=== PATIENT | female | born 1995 | race Caucasian/White ===

== ENCOUNTER 2016-10-03 21:03 | Emergency (ER) | payer OTHER ==
[~2016-10-03] VITALS: Ht 154.9 cm; Wt 45.2 kg
[~2016-10-03 21:03] MED LIST: ACET50TA PO; IBUP80TA PO; IRON65TA PO; MOTR200T44 PO; PRENTAB74 PO; TYLE325T5 PO; VITAPRTA PO
[2016-10-03 22:37] VITALS: BP 109/67
== END 2016-10-03 22:59 | disposition home or self-care (01) ==
LOC: M ED 21:03
DX: F43.0 Acute stress reaction (principal); F17.210 Nicotine dependence, cigarettes, uncomplicated

== ENCOUNTER 2016-10-22 04:16 | Emergency (ER) | payer OTHER ==
[~2016-10-22] VITALS: Ht 154.9 cm; Wt 47.7 kg
[2016-10-22 04:20] VITALS: BP 112/71
== END 2016-10-22 06:17 | disposition left against medical advice (07) ==
LOC: M ED 04:16
DX: S69.91XA Unspecified injury of right wrist, hand and finger(s), initial encounter (principal); Z53.21 Procedure and treatment not carried out due to patient leaving prior to being seen by health care provider

== ENCOUNTER → 2018-06-28 | Outpatient (REF) | payer OTHER ==
[~2018-06-28] MED LIST changes: +CHERSYP3 PO; +TESS100C PO
[2018-06-28 14:49] LABS: APPEARANCE, URINE HAZY (CLEAR); BACTERIA, URINE AUTO NEGATIVE (NEGATIVE); BILIRUBIN, URINE AUTO NEGATIVE (NEGATIVE); BLOOD, URINE BLOOD 1+ (NEGATIVE); COLOR, URINE YELLOW (YELLOW); GLUCOSE, URINE (UA) AUTO NEGATIVE (NEGATIVE); KETONE, URINE AUTO NEGATIVE (NEGATIVE); LEUKOCYTE ESTERASE, URINE AUTO 1+ (NEGATIVE); MUCUS, URINE SMALL (NEGATIVE); NITRITE, URINE AUTO NEGATIVE (NEGATIVE); PROTEIN, URINE AUTO 1+ mg/dL (NEGATIVE); RBC, URINE AUTO 2 /HPF (0-3); SPECIFIC GRAVITY URINE AUTO 1.019 (1.002-1.035); SQUAMOUS EPITHELIAL CELL UR AU 15 /HPF (0-6); UROBILINOGEN, URINE AUTO 0.2 mg/dL (0.0-2.0); WBC, URINE AUTO 27 /HPF (0-3)
== END ==
LOC: M LAB REF 14:25
PROVIDERS: ATTEND Nurse Practitioner Family
DX: R50.9 Fever, unspecified (principal); N39.0 Urinary tract infection, site not specified

== ENCOUNTER 2018-08-24 23:58 | Emergency (ER) | payer OTHER ==
[~2018-08-24] VITALS: Ht 154.9 cm; Wt 50.0 kg
[~2018-08-24 23:58] MED LIST changes: -ACET50TA PO; +MAPA500T17 PO
[2018-08-25] MEDS ORDERED: KETOROLAC 60 MG/2 ML VIAL (J1885) IM ONE (00:15)
--- NOTE | 2018-08-25 02:09 | REPVR ---
EXAM: US Pelvis Complete, Transabdominal EXAM DATE/TIME: 08/25/2018 1:29 AM CLINICAL HISTORY: 22 years old, female; Pelvic pain; Additional info: Iud in cervix TECHNIQUE: Imaging protocol: Real-time transabdominal pelvic ultrasound with image documentation. Complete exam. COMPARISON: US OBS FOLL UP OR REPEAT EACH GES 08/23/2014 2:42 PM FINDINGS: Uterus/cervix: The uterus measures 8.8 cm in its cephalocaudad dimension and 5.1 x 6.9 cm in its AP and lateral dimensions transabdominal. The uterus measures 8.8 cm in its cephalocaudad dimension and 4.9 x 6.6 cm in its AP and lateral dimensions transvaginal and appears retroflexed. The endometrium measures 3 mm. IUD in lower uterine segment and cervix. Right adnexa: The right ovary measures 3.6 x 3.1 x 2.4 cm and demonstrates blood flow and small follicles. Left adnexa: The left ovary measures 2.7 x 4.0 x 2.5 cm and demonstrates blood flow and small follicles. Free fluid: None. Bladder: Normal. IMPRESSION: 1. Low position of an IUD in the lower uterine segment and cervix. 2. Otherwise negative pelvic sonogram. Electronically signed by: Delgado Weber On 08/25/2018 02:08:42 AM
[2018-08-25] MEDS ORDERED: IBUP-1022 PO (02:16)
[2018-08-25 02:25] VITALS: BP 119/73
--- NOTE | 2018-08-26 14:20 | ED PDOC ---
Post-Departure Follow-Up dr ho faxed formal report of pelvis us for follow up Neptali Sousa MD August 26, 2018 14:20
== END 2018-08-25 02:26 | disposition home or self-care (01) ==
LOC: M ED 23:58
DX: R10.2 Pelvic and perineal pain (principal); T83.89XA Other specified complication of genitourinary prosthetic devices, implants and grafts, initial encounter; X58.XXXA Exposure to other specified factors, initial encounter; Y92.89 Other specified places as the place of occurrence of the external cause; Z88.0 Allergy status to penicillin; F17.210 Nicotine dependence, cigarettes, uncomplicated
CPT/HCPCS: 76830; 76856; 93976; 96372; 99284; J1885

== ENCOUNTER 2018-12-01 22:20 | Emergency (ER) | payer OTHER, SELFPAY ==
[~2018-12-01] VITALS: Ht 154.9 cm; Wt 52.3 kg
[2018-12-01 22:20] VITALS: BP 126/79
[~2018-12-01 22:20] MED LIST changes: +IBUP-1022 PO
[2018-12-02] MEDS ORDERED: LIDOCAINE 2% MDV 20 ML VIAL SC ONE (01:30)
[2018-12-02] MEDS ORDERED: DOXY100C37 PO (01:50)
[2018-12-02] MEDS ORDERED: DOXYCYCLINE HYCLATE 100 MG TAB PO ONE (02:00)
[2018-12-02] MEDS ORDERED: IBUPROFEN 600 MG TAB PO ONE (02:00)
== END 2018-12-02 02:02 | disposition home or self-care (01) ==
LOC: M ED 22:20
DX: L02.412 Cutaneous abscess of left axilla (principal); F31.9 Bipolar disorder, unspecified; Z72.0 Tobacco use; Z88.0 Allergy status to penicillin

== ENCOUNTER → 2019-01-12 | Outpatient (CLI) | payer OTHER, SELFPAY ==
[~2019-01-12] MED LIST changes: +DOXY100C37 PO; +FLON1SPR NARES
[2019-01-12 14:35] LABS: BASO % 0.1 % (0.0-1.0); EOS # 0.1 10^3/uL (0.0-0.5); EOS % 0.7 % (0.0-3.0); HEMATOCRIT 39.5 % (36.0-47.0); HEMOGLOBIN 13.6 g/dl (12.0-15.5); LYMPH % 24.6 % (24.0-44.0); MEAN CORPUSCULAR HEMOGLOBIN 31.9 pg (27.0-33.0); MEAN CORPUSCULAR HGB CONC 34.4 g/dl (32.0-36.5); MEAN CORPUSCULAR VOLUME 92.7 fl (80.0-96.0); MONO # 0.4 10^3/uL (0.0-0.8); MONO % 4.9 % (0.0-5.0); NEUTROPHILS # 5.8 10^3/uL (1.5-8.5); NEUTROPHILS % 69.5 % (36.0-66.0); PLATELET COUNT, AUTOMATED 159 10^3/uL (150-450); RED BLOOD COUNT 4.26 10^6/uL (4.00-5.40); WHITE BLOOD COUNT 8.3 10^3/uL (4.0-10.0)
[2019-01-12 16:00] LABS: CHLAMYDIA DNA AMPLIFICATION NEGATIVE (NEGATIVE); GC DNA AMPLIFICATION NEGATIVE (NEGATIVE)
[2019-01-12 21:32] LABS: RUBELLA IgG QUALITATIVE IMMUNE (IMMUNE)
[2019-01-14 11:27] LABS: HEPATITIS C VIRUS ABY INDEX 0.1 INDEX (<0.8)
[2019-01-14 12:58] LABS: HIV 1&2 SCREEN CENTAUR NEGATIVE (NEGATIVE)
== END ==
LOC: M LAB 13:44
PROVIDERS: ATTEND Advanced Practice Midwife
DX: Z34.82 Encounter for supervision of other normal pregnancy, second trimester (principal)

== ENCOUNTER 2019-01-15 12:10 | Emergency (ER) | payer OTHER, SELFPAY ==
[~2019-01-15] VITALS: Ht 154.9 cm; Wt 52.2 kg
[~2019-01-15 12:10] MED LIST changes: -FLON1SPR NARES
[2019-01-15 14:21] LABS: INFLUENZA A AMPLIFICATION NEGATIVE (NEGATIVE); INFLUENZA B AMPLIFICATION NEGATIVE (NEGATIVE)
[2019-01-15] MEDS ORDERED: FLON1SPR NARES (14:21)
[2019-01-15 14:26] VITALS: BP 119/67
== END 2019-01-15 14:58 | disposition home or self-care (01) ==
LOC: M ED 12:10
DX: J06.9 Acute upper respiratory infection, unspecified (principal); F17.200 Nicotine dependence, unspecified, uncomplicated; F31.9 Bipolar disorder, unspecified; Z88.0 Allergy status to penicillin; Z33.1 Pregnant state, incidental

== ENCOUNTER → 2019-03-13 | Outpatient (CLI) | payer OTHER, SELFPAY ==
[~2019-03-13] MED LIST changes: +FLON1SPR NARES
--- NOTE | 2019-03-13 12:02 | REP ---
Clinical: Anatomical evaluation. Comparison: None . Findings: Examination demonstrates a single live intrauterine in cephalic presentation. motion is identified by technologist. Placenta is noted posteriorly and grade 0 with evidence for complete previa. No evidence for abruption. Amniotic fluid volume is normal. Cervix measures 3.9 centimeters in length and appears closed. No evidence for nuchal cord. Gestational age by LMP 18 weeks 3 days with MAURY 08/11/2019 . Gestational age by current measurements 18 weeks 2 days with MAURY 08/12/2019 . FHR equals 149 beats per minute. BPD 4.1 cm 18 weeks 3 days HC 15.3 cm 18 weeks 2 days AC 12.6 cm 18 weeks 1 day FL 2.7 cm 18 weeks 1 day HL 2.6 cm 18 weeks 1 day HC/AC ratio 1.21 Estimated weight 227 grams ( 38th percentile). Anatomical assessment demonstrates normal structures including cranium, choroid plexus, cavum, cerebellum/posterior fossa, facial features, lungs, four-chamber heart/ventricular outflow tracts, diaphragm, stomach, cord insertion/three-vessel cord, kidneys/bladder, and extremities. Impression: 1. Single live intrauterine in cephalic presentation demonstrating appropriate interval growth. 2. Posterior grade zero placenta with complete previa. 3. Limited evaluation the spine. Remainder of the anatomical assessment is complete and normal. Electronically Signed by Shady Diaz MD 03/13/2019 11:53 A
== END ==
LOC: M RAD 11:08
PROVIDERS: ATTEND Specialist
DX: Z34.80 Encounter for supervision of other normal pregnancy, unspecified trimester (principal); Z3A.18 18 weeks gestation of pregnancy

== ENCOUNTER 2019-05-03 13:30 | Emergency (ER) | payer OTHER, SELFPAY ==
[~2019-05-03] VITALS: Ht 154.9 cm; Wt 57.0 kg
[2019-05-03 13:30] VITALS: BP 117/71
[2019-05-03 14:27] LABS: INFLUENZA A AMPLIFICATION NEGATIVE (NEGATIVE); INFLUENZA B AMPLIFICATION NEGATIVE (NEGATIVE)
== END 2019-05-03 14:37 | disposition home or self-care (01) ==
LOC: M ED 13:30
DX: O99.512 Diseases of the respiratory system complicating pregnancy, second trimester (principal); J06.9 Acute upper respiratory infection, unspecified; B34.9 Viral infection, unspecified; R05 Cough; Z88.0 Allergy status to penicillin; Z3A.26 26 weeks gestation of pregnancy

== ENCOUNTER 2019-05-13 19:43 | Emergency (ER) | payer OTHER, SELFPAY ==
[~2019-05-13] VITALS: Ht 154.9 cm; Wt 54.5 kg
[2019-05-13 22:13] LABS: INFLUENZA A AMPLIFICATION POSITIVE (NEGATIVE); INFLUENZA B AMPLIFICATION NEGATIVE (NEGATIVE)
[2019-05-13] MEDS ORDERED: ALBUTEROL SULFATE 2.5 MG/0.5 ML INH NEB SOLN NEB ONE (22:30)
[2019-05-13 23:45] VITALS: BP 112/58
[2019-05-13] MEDS ORDERED: ALBUTEROL 90 MCG/ACT 8GM HFA INHALER INH ONE (23:45)
== END 2019-05-13 23:46 | disposition home or self-care (01) ==
LOC: M ED 19:43
DX: O99.513 Diseases of the respiratory system complicating pregnancy, third trimester (principal); J09.X2 Influenza due to identified novel influenza A virus with other respiratory manifestations; Z3A.27 27 weeks gestation of pregnancy; O99.343 Other mental disorders complicating pregnancy, third trimester; F31.9 Bipolar disorder, unspecified; Z88.0 Allergy status to penicillin; Z87.891 Personal history of nicotine dependence

== ENCOUNTER 2019-05-18 10:41 | Outpatient (CLI) | payer SELFPAY ==
[2019-05-18] VITALS (7 sets, daily range): BP systolic 94–114; BP diastolic 53–72
[~2019-05-18] VITALS: Ht 154.9 cm; Wt 55.5 kg
[2019-05-18] MEDS: PRENATAL VITAMINS CHEWABLE TABLET PO SCH (09:00)
--- NOTE | 2019-05-18 12:32 | REP ---
Clinical: History of placenta previa Comparison: 03/13/2019 . Findings: Examination demonstrates a single live intrauterine in breech presentation. motion is identified by technologist. Placenta is noted posterior, grade 1 and with evidence for complete previa. A small amount of funneling along with a 2.8 x 1.0 x 2.0 cm hyperechoic focus which may represent clot is suggested at the internal os. The cervix measures 3.8 cm in length. Amniotic fluid volume is lower limits of normal. No evidence for nuchal cord. Gestational age by LMP 27 weeks 6 days with MAURY 08/11/2019 . FHR equals 165 beats per minute. Amniotic fluid index: 9.8 cm (9.4 - 22.8) Impression: 1. Complete placenta previa with suggestion for clot and small amount of funneling at the internal os. The cervix measures at 3.8 cm. Electronically Signed by Shady Diaz MD 05/18/2019 12:23 P
[2019-05-18 15:18] LABS: HEMATOCRIT 30.4 % (36.0-47.0); MEAN CORPUSCULAR HGB CONC 32.9 g/dl (32.0-36.5); MEAN CORPUSCULAR VOLUME 94.1 fl (80.0-96.0); PLATELET COUNT, AUTOMATED 130 10^3/uL (150-450); RED BLOOD COUNT 3.23 10^6/uL (4.00-5.40)
[2019-05-18] MEDS ORDERED: DOCUSATE SODIUM 100 MG CAP PO PRN (15:30)
[2019-05-18] MEDS: BETAMETHASONE SOLUSPAN 6MG/ML INJ 5ML (J0702) IM SCH (15:38)
[2019-05-18] MEDS: FERROUS GLUCONATE 324 MG TAB PO SCH ×2 (17:29→21:00)
--- NOTE | 2019-05-18 17:45 | IPNPDOC ---
Text Note Date of Service The patient was seen on 05/18/19. NOTE Subjective: Patient is a 23-year-old female who is a at 27.6 weeks g estation with an MAURY of 08/11/19. Her has been complicated by being a smoker, history of delivery and a complete previa. She presents to L&D with complaints of a large amount of bright red bleeding that started abruptly this morning at 10:00. She denies having any intercourse or any heavy lifting. Reports her bleeding started when she was laying on the couch. She reports some cramping but denies contractions and leaking of fluid. Reports active movement. Allergies: PCN Current medications: none Past pregnancies: -May 2013: of living female at 40.4 weeks gestation weighting 6 lbs 14 oz. with no complications. -November 2014: of living male at 36.5 weeks gestation weighting 6 lbs 2 oz., complicated by PPROM labs: O+ blood type, H/H: 13.6/39.5 with platelets 159 Medical history: no current problems Surgical history: none Social history: patient is a smoker. Smoking about 1/2 pack per day. Denies use of alcohol or drugs during . Family history: seizure Objective: FHR 140, moderate variability, positive accelerations, no dece lerations. Contractions: occasional. A+O x3. Dental decay noted. Respiratory rate is regular without use of accessory muscles. Abdomen: gravid, soft and non- tender to touch. SSE: 2 large clots noted in the vaginal canal. Clots removed and appear to be about 150 cc for blood loss. Cervix visualized and appears to be closed. Scant amount of bright red trickle noted coming from the cervical os with Valsalva's. Assessment: IUP at 27.6 weeks gestation, complete previa with active bleeding. Plan: Dr. Garcia consulted for plan of care. Stat ultrasound-transvaginal ordered with CBC. Betamethasone ordered for now and again in 24 hours. Iron, PNV and colace ordered due to CBC results. Saline lock placed. Will continue to monitor patient with continuous external monitoring. Extensive education done on a complete previa and plan of care. Encouraged no intercourse, pelvic rest and no heavy lifting. Will be discharged to home tomorrow if bleeding stops and after her second dose of Betamethasone. VS,Fishbone, I+O VS, Fishbone, I+O Laboratory Tests 05/18/19 14:59 Vital Signs Date Time Temp Pulse Resp B/P (MAP) Pulse Ox O2 Delivery O2 Flow Rate FiO2 05/18/19 16:33 78 18 101/57 (72) 05/18/19 14:13 98.6 EXAMINATION REQUESTED: Obs. Limited, TALISHA US REASON FOR PATIENT VISIT: BLEEDING REASON FOR EXAM/COMMENT: complete previa with bleeding Clinical: History of placenta previa Comparison: 03/13/2019 . Findings: Examination demonstrates a single live intrauterine in breech presentation. motion is identified by technologist. Placenta is noted posterior, grade 1 and with evidence for complete previa. A small amount of funneling along with a 2.8 x 1.0 x 2.0 cm hyperechoic focus which may represent clot is suggested at the internal os. The cervix measures 3.8 cm in length. Amniotic fluid volume is lower limits of normal. No evidence for nuchal cord. Gestational age by LMP 27 weeks 6 days with MAURY 08/11/2019 . FHR equals 165 beats per minute. Amniotic fluid index: 9.8 cm (9.4 - 22.8) Impression: 1. Complete placenta previa with suggestion for clot and small amount of funneling at the internal os. The cervix measures at 3.8 cm. Electronically Signed by Shady Diaz MD 05/18/2019 12:23 P KATE FREDERICK CNM May 18, 2019 17:45
[2019-05-19 07:29] VITALS: BP 101/55
[2019-05-19] MEDS: PRENATAL VITAMINS CHEWABLE TABLET PO SCH (09:00)
[2019-05-19] MEDS: FERROUS GLUCONATE 324 MG TAB PO SCH ×2 (09:00→16:00)
[2019-05-19 11:05] VITALS: BP 99/57
[2019-05-19 15:16] VITALS: BP 95/62
[2019-05-19] MEDS: BETAMETHASONE SOLUSPAN 6MG/ML INJ 5ML (J0702) IM SCH (15:49)
== END 2019-05-19 18:05 | disposition home or self-care (01) ==
LOC: M LDO 10:41
PROVIDERS: ATTEND Advanced Practice Midwife
DX: O44.03 Complete placenta previa NOS or without hemorrhage, third trimester (principal); O99.333 Smoking (tobacco) complicating pregnancy, third trimester; Z3A.27 27 weeks gestation of pregnancy; Z88.0 Allergy status to penicillin
CPT/HCPCS: 36415; 59025; 76815; 76817; 85027; 93976; 96372; G0378; G0463; J0702

== ENCOUNTER → 2019-06-15 | Outpatient (CLI) | payer OTHER, SELFPAY ==
[2019-06-15 14:40] LABS: HEMATOCRIT 29.6 % (36.0-47.0); HEMOGLOBIN 9.9 g/dl (12.0-15.5); MEAN CORPUSCULAR HEMOGLOBIN 31.6 pg (27.0-33.0); MEAN CORPUSCULAR HGB CONC 33.4 g/dl (32.0-36.5); MEAN CORPUSCULAR VOLUME 94.6 fl (80.0-96.0); PLATELET COUNT, AUTOMATED 129 10^3/uL (150-450); RED BLOOD COUNT 3.13 10^6/uL (4.00-5.40); WHITE BLOOD COUNT 10.2 10^3/uL (4.0-10.0)
== END ==
LOC: M LAB 12:24
PROVIDERS: ATTEND Advanced Practice Midwife
DX: Z34.92 Encounter for supervision of normal pregnancy, unspecified, second trimester (principal)

== ENCOUNTER 2019-07-06 22:25 | Outpatient (CLI) | payer OTHER, SELFPAY ==
[~2019-07-06] VITALS: Ht 154.9 cm; Wt 60.0 kg
[2019-07-06 22:34] VITALS: BP 110/65
--- NOTE | 2019-07-06 22:54 | IPNPDOC ---
Text Note Date of Service The patient was seen on 07/06/19. NOTE Subjective: Patient is a 23-year-old female who is a at 34.6 weeks gestation with an MAURY of 08/11/2019. She initiated care in her first trimester. Her has been complicated by a complete previa, smoking, and a history of labor. She presents with vaginal bleeding. She reports she was folding laundry and felt some bleeding and went to the bathroom and noted a gush of blood into the toilet. She reports it was very watery and not clotting like it was with her last episode. She reports she is unsure if her water broke. She had an episode fo bleeding at 27 weeks and was given betamethasone injections then. She reports active movement. She denies cramping or contractions. Objective: VS and ultrasound see below. FHR 130, moderate variability, positive accelerations, no decelerations. Contractions: none. A+Ox3. Respiratory rate is regular with no use of accessory muscles. Abdomen: gravid and soft to palpation. SSE: about 50 cc of blood removed from the vaginal canal with the speculum. No active bleeding coming from the cervical os with Valsalva. Assessment: IUP at 34.6 weeks gestation, complete previa with active bleeding, beta complete. Plan: Dr. Garcia notified and plan of care collaborated. We will continue to monitor. Continue with NPO diet with ice chips. Portable ultrasound ordered. Patient encouraged to let us know if she has nay more bleeding or is feeling contractions. IV to be continued with LR at 125 ml/hr. CBC and Type and screen ordered. VS,Fishbone, I+O VS, Fishbone, I+O Vital Signs Date Time Temp Pulse Resp B/P (MAP) Pulse Ox O2 Delivery O2 Flow Rate FiO2 07/06/19 22:34 98.2 96 16 110/65 (80) Item Value Date Time White Blood Count 8.0 10^3/uL 05/18/19 1459 Red Blood Count 3.23 10^6/uL L 05/18/19 1459 Hemoglobin 10.0 g/dl L 05/18/19 1459 Hematocrit 30.4 % L 05/18/19 1459 Mean Corpuscular Volume 94.1 fl 05/18/19 1459 Mean Corpuscular Hemoglobin 31.0 pg 2/10/20 1459 Mean Corpuscular Hemoglobin Concent 32.9 g/dl 05/18/19 1459 Red Cell Distribution Width 12.8 % 05/18/19 1459 Platelet Count 130 10^3/uL L 05/18/19 1459 Nucleated Red Blood Cells % (auto) 0.0 % 05/18/19 1459 EXAMINATION REQUESTED: Obs. Limited, TALISHA US REASON FOR PATIENT VISIT: 35 WEEK PREVIA BLEEDING REASON FOR EXAMINATION: complete previa with bleeding and questionable rupture PROCEDURE INFORMATION: Exam: US , Limited Exam date and time: 07/07/2019 12:35 AM Age: 23 years old Clinical indication: Lmp or gestational age (in weeks): 35w; Antepartum complications; Bleeding; ; Additional info: Complete previa with bleeding and questionable rupture TECHNIQUE: Imaging protocol: Real-time ultrasound of the maternal uterus with image documentation. Exam focused on the clinical indication. COMPARISON: Obs. Limited, TALISHA US 05/18/2019 11:50 AM FINDINGS: GESTATION: Gestation: Single intrauterine fetus. Heart rate: heartbeat of 153 bpm. Presentation: Cephalic presentation. Placenta: Posterior and left lateral placenta with complete previa. Amniotic fluid: TALISHA of 7.5 cm. MATERNAL: Cervix: Closed cervix measuring 3.0 cm and 2.6 cm with Valsalva. Other findings: S/D ratio is 2.4. IMPRESSION: 1. Decreased TALISHA since 05/18/2019 now measuring 7.5 cm which is slightly abnormal. 2. Posterior left lateral placenta with complete previa. 3. Single live intrauterine fetus in cephalic presentation. Electronically signed by: Delgado Weber On 07/07/2019 00:56:47 AM KATE FREDERICK CNM Jul 06, 2019 22:54
[2019-07-06] MEDS: LR 1,000 ML IV SCH (23:15)
[2019-07-07] VITALS (8 sets, daily range): BP systolic 91–103; BP diastolic 50–59
--- NOTE | 2019-07-07 00:57 | REPVR ---
PROCEDURE INFORMATION: Exam: US , Limited Exam date and time: 07/07/2019 12:35 AM Age: 23 years old Clinical indication: Lmp or gestational age (in weeks): 35w; Antepartum complications; Bleeding; ; Additional info: Complete previa with bleeding and questionable rupture TECHNIQUE: Imaging protocol: Real-time ultrasound of the maternal uterus with image documentation. Exam focused on the clinical indication. COMPARISON: Obs. Limited, TALISHA US 05/18/2019 11:50 AM FINDINGS: GESTATION: Gestation: Single intrauterine fetus. Heart rate: heartbeat of 153 bpm. Presentation: Cephalic presentation. Placenta: Posterior and left lateral placenta with complete previa. Amniotic fluid: TALISHA of 7.5 cm. MATERNAL: Cervix: Closed cervix measuring 3.0 cm and 2.6 cm with Valsalva. Other findings: S/D ratio is 2.4. IMPRESSION: 1. Decreased TALISHA since 05/18/2019 now measuring 7.5 cm which is slightly abnormal. 2. Posterior left lateral placenta with complete previa. 3. Single live intrauterine fetus in cephalic presentation. Electronically signed by: Delgado Weber On 07/07/2019 00:56:47 AM
[2019-07-07 01:00] LABS: BASO % 0.2 % (0.0-1.0); EOS % 0.4 % (0.0-3.0); HEMOGLOBIN 8.6 g/dl (12.0-15.5); LYMPH # 2.5 10^3/uL (1.5-5.0); LYMPH % 24.1 % (24.0-44.0); MEAN CORPUSCULAR HEMOGLOBIN 31.4 pg (27.0-33.0); MEAN CORPUSCULAR HGB CONC 34.4 g/dl (32.0-36.5); MEAN CORPUSCULAR VOLUME 91.2 fl (80.0-96.0); MONO # 0.8 10^3/uL (0.0-0.8); MONO % 7.4 % (0.0-5.0); NEUTROPHILS % 67.3 % (36.0-66.0); PLATELET COUNT, AUTOMATED 136 10^3/uL (150-450); RED BLOOD COUNT 2.74 10^6/uL (4.00-5.40); WHITE BLOOD COUNT 10.4 10^3/uL (4.0-10.0)
[2019-07-07] MEDS ORDERED: FLINCHW2 PO (08:00)
[2019-07-07] MEDS: LR 1,000 ML IV SCH (10:32)
== END 2019-07-07 14:22 | disposition home or self-care (01) ==
LOC: M LDO 22:25
PROVIDERS: ATTEND Advanced Practice Midwife
DX: O46.93 Antepartum hemorrhage, unspecified, third trimester (principal); O44.10 Complete placenta previa with hemorrhage, unspecified trimester; Z3A.34 34 weeks gestation of pregnancy
CPT/HCPCS: 36415; 59025; 76815; 76817; 76820; 85025; 86850; 86900; 86901; 96360; 96361; G0378; G0463

== ENCOUNTER 2019-07-09 00:06 | Inpatient (IN) | payer OTHER, SELFPAY ==
[2019-07-09] VITALS (24 sets, daily range): BP systolic 93–113; BP diastolic 53–69
[~2019-07-09] VITALS: Ht 154.9 cm; Wt 60.7 kg
[~2019-07-09 00:06] MED LIST changes: +FLINCHW2 PO
[2019-07-09] MEDS ORDERED: ceFAZolin SOD 2 GM in IV 1 EA IV ONE (01:00)
[2019-07-09] MEDS ORDERED: AZITHROMYCIN INJ 500 MG, VIAL MATE ADAPTER 1 EACH in D5W 250 ML IV ONE (01:00)
[2019-07-09] MEDS ORDERED: BICITRA 30ML SOLN UDC PO ONE (01:00)
[2019-07-09] MEDS: LR 1,000 ML IV SCH ×4 (01:21→17:20)
[2019-07-09 01:28] LABS: HEMOGLOBIN 8.2 g/dl (12.0-15.5); MEAN CORPUSCULAR HEMOGLOBIN 31.1 pg (27.0-33.0); MEAN CORPUSCULAR HGB CONC 34.2 g/dl (32.0-36.5); MEAN CORPUSCULAR VOLUME 90.9 fl (80.0-96.0); PLATELET COUNT, AUTOMATED 145 10^3/uL (150-450); RED BLOOD COUNT 2.64 10^6/uL (4.00-5.40); WHITE BLOOD COUNT 9.6 10^3/uL (4.0-10.0)
[2019-07-09] MEDS ORDERED: LACTATED RINGER'S 1000 ML IV ONE (01:30)
[2019-07-09 03:28] LABS: AMPHETAMINES URINE REFLEX NEGATIVE (NEGATIVE); BARBITURATES URINE REFLEX NEGATIVE (NEGATIVE); BENZODIAZEPINES URINE REFLEX NEGATIVE (NEGATIVE); CANNABINOIDS URINE REFLEX NEGATIVE (NEGATIVE); COCAINE METABOLITE URINE REFLE NEGATIVE (NEGATIVE); METHADONE URINE REFLEX NEGATIVE (NEGATIVE); OPIATES URINE REFLEX NEGATIVE (NEGATIVE); PHENCYCLIDINE URINE REFLEX NEGATIVE (NEGATIVE)
--- NOTE | 2019-07-09 06:15 | HPE ---
DATE OF ADMISSION: 07/09/2019 HISTORY OF PRESENT ILLNESS: Candice is a 23-year-old, 3, para 1-1-0-2, at 35-2/7 weeks gestation, expected date of confinement (EDC) of 08/11/2019 based on first trimester ultrasound. She presents to labor and delivery today with an episode of spontaneous vaginal bleeding at approximately 2330. She reports a small clot and some continued scant bleeding. She denies contractions or leakage of fluid. The fetus has been active. Her care was initiated at [facility] in the first trimester. course complicated by placenta previa. This is her second episode of bleeding in 48 hours. She is a smoker and she has a history of delivery due to premature rupture of membranes (PPROM). OBSTETRICAL HISTORY: May 2013, 40 weeks and 4 days, 6 pounds and 14 ounces female, spontaneous vaginal delivery. November 2014, 36-5/7 weeks, 6 pounds 2 ounces male, spontaneous vaginal delivery, premature rupture of membranes. OBSTETRICAL LABS: O positive, antibody screen negative, Rubella immune, VDRL: non-reactive, Urine culture: no growth, HBsAG negative, HIV negative, hep C antibody Negative, Declined genetic screening labs, GDS-121, GBS unknown. PAST MEDICAL HISTORY: Noncontributory. SURGERIES: None. FAMILY HISTORY: Seizure disorder. SOCIAL HISTORY: The patient is single. She does have a partner that is involved. She is a smoker and she has continued to smoke throughout her . She denies alcohol and drug use. She denies any history of sexually transmitted infections. She denies history of abuse - physical, sexual and emotional. ALLERGIES: PENICILLIN, she reports a rash. Denies any anaphylactic reaction. CURRENT MEDICATIONS: vitamin and iron. OBJECTIVE: Temperature 97.7, pulse 103, respirations 18, blood pressure (BP) is 111/64. She is alert and oriented x3. She does not appear in any distress. heart rate is 145, moderate variability, positive accelerations, negative decelerations. There is no pattern of regular contractions. Sterile speculum exam noted a small amount of dark red clot in the vaginal vault. There appears to be minimal active bleeding at this time. Her abdomen is gravid, cephalic presentation. She did undergo an ultrasound on 07/07/2019 that demonstrated oligohydramnios, fluid was 7 centimeters. She also had a CBC which showed anemia which she has had since the beginning of the third trimester. Her hemoglobin on 07/07/2019 was 8.6, hematocrit 25.0 and platelets 136. ASSESSMENT: Intrauterine at 35-2/7 weeks gestation. heart rate category one. Placenta previa, bleeding and severe anemia. PLAN: Per consult with Dr. Manuel Freitas, admit the patient to labor and delivery. IV fluids. Routine labs. Bedrest with bathroom privileges. Nothing by mouth diet. Two units of packed cells. Plan for section in the morning at approximately 0730. The risks, benefits and alternatives have been reviewed with the patient. All of her questions have been answered. She has been consented for a primary section as well as blood transfusion. SAÚL
[2019-07-09] MEDS ORDERED: PHENYLephrine HCL 500 MCG/5 ML (100MCG/ML) SYRINGE (J2370) As Ordered ONE (07:39)
[2019-07-09] MEDS ORDERED: ePHEDrine SULFATE 25 MG/5 ML(5MG/ML) SYRINGE As Ordered ONE (07:39)
[2019-07-09] MEDS ORDERED: ONDANSETRON 4MG/2ML VIAL (J2405) As Ordered ONE (07:39)
[2019-07-09] MEDS ORDERED: dexameTHASONE 4 MG/ML 1ML VIAL (J1100 PER 1MG) As Ordered ONE (07:39)
[2019-07-09] MEDS ORDERED: MORPHINE PRES-FREE INJ 10 MG/10 ML VIAL (J2274) As Ordered ONE (07:40)
[2019-07-09] MEDS ORDERED: OXYTOCIN 30 UNITS IN 0.9% NaCl 500ML IV BAG (J2590) As Ordered ONE ×2 (07:40→10:48)
[2019-07-09] MEDS ORDERED: METOCLOPRAMIDE INJ 10MG/2ML VIAL (J2765) IV PRN ×2 (09:53→11:15)
[2019-07-09] MEDS ORDERED: ONDANSETRON 4MG/2ML VIAL (J2405) IV PRN ×2 (09:53→11:15)
[2019-07-09] MEDS ORDERED: NALOXONE INJ 0.4 MG/1 ML VIAL (J2310) IV PRN ×2 (09:53)
[2019-07-09] MEDS ORDERED: diphenhydrAMINE 50MG/ML VIAL (J1200) IV PRN (09:53)
[2019-07-09] MEDS ORDERED: NALBUPHINE HCL 10 MG/ML AMP (J2300) IV PRN (09:53)
[2019-07-09] MEDS ORDERED: GLYCOPYRROLATE INJ 0.2 MG/ML 2 ML VIAL As Ordered ONE (10:18)
[2019-07-09] MEDS ORDERED: OXYTOCIN INJ 10 UNITS/ML VIAL (J2590) As Ordered ONE (10:28)
[2019-07-09] MEDS ORDERED: OXYTOCIN DRIP 30 UNITS in IV 1 EA IV SCH (10:52)
[2019-07-09] MEDS ORDERED: RHOGAM 300 MCG (1500 IU) INJ (J2790) IM SCH (11:00)
[2019-07-09] MEDS ORDERED: MEASLES,MUMPS,RUBELLA VACCINE INJ (MMR-II) (90707) SC SCH (11:00)
[2019-07-09] MEDS ORDERED: PERCOCET 5MG/325MG TAB PO PRN ×3 (11:00→11:15)
[2019-07-09] MEDS ORDERED: ONDANSETRON 4 MG TAB (S0181) PO PRN (11:00)
--- NOTE | 2019-07-09 11:05 | RO ---
DATE OF PROCEDURE: 07/09/2019 PREPROCEDURE DIAGNOSIS: 35 and 3/7 weeks gestation, complete placenta previa, early labor, bleeding. POSTPROCEDURE DIAGNOSIS: 35 and 3/7 weeks gestation, complete placenta previa, early labor, bleeding. PROCEDURE: Primary low transverse section. SURGEON: Manuel Freitas MD CONSUMER EXPERIENCE CONSULTANT: Faustino Su DO ANESTHESIA: Spinal. ESTIMATED BLOOD LOSS: 600 mL. URINE OUTPUT: 50 mL. IV FLUIDS: 1900 mL lactated Ringers. FINDINGS: Female , Apgars 8 and 9. Weight unknown at the time of dictation. Complete placenta previa. Normal uterus, fallopian tubes and ovaries. DESCRIPTION OF PROCEDURE: The patient was taken to the operating room where spinal anesthesia was induced. She was prepped and draped in sterile fashion in the supine position. A Felix catheter was placed. A Pfannenstiel skin incision was made with the scalpel and carried through to the fascia. The fascia was nicked and extended and the fascia dissected off the rectus muscles. The peritoneal cavity was entered. A Mobius retractor was placed. A bladder flap was created. A curvilinear incision was made in the lower uterine segment until clear fluid was noted. This was extended manually. The infant was delivered from the vertex position without difficulty. The cord was doubly clamped and cut. The infant was handed off to the awaiting elastic tape inserter. The placenta was noted to be a complete placenta previa. The placenta was expressed. The uterus was closed with #0 Vicryl in a running locked fashion. A second imbricating layer of #0 Vicryl was placed. The Mobius retractor was removed. The peritoneum was closed with #2-0 Vicryl in running fashion. The fascia closed with #0 Vicryl in running fashion. The deep layer was irrigated. The skin was closed with #4-0 Monocryl subcuticular sutures. Sponge, instrument and needle counts were correct.
[2019-07-09] MEDS ORDERED: KETOROLAC 30 MG/ML VIAL (J1885) As Ordered ONE (11:06)
[2019-07-09] MEDS ORDERED: KETOROLAC 30 MG/ML VIAL (J1885) IV PRN (11:15)
[2019-07-09] MEDS ORDERED: LR 1,000 ML IV SCH (11:15)
[2019-07-09] MEDS ORDERED: fentaNYL 100 MCG/2 ML INJECTION (J3010) As Ordered ONE (11:31)
[2019-07-09] MEDS: fentaNYL 100 MCG/2 ML INJECTION (J3010) IV PRN ×3 (11:33→11:52)
[2019-07-09 15:22] LABS: HEMATOCRIT 28.4 % (36.0-47.0); HEMOGLOBIN 9.7 g/dl (12.0-15.5); MEAN CORPUSCULAR HGB CONC 34.2 g/dl (32.0-36.5); MEAN CORPUSCULAR VOLUME 90.7 fl (80.0-96.0); PLATELET COUNT, AUTOMATED 114 10^3/uL (150-450); RED BLOOD COUNT 3.13 10^6/uL (4.00-5.40); WHITE BLOOD COUNT 14.1 10^3/uL (4.0-10.0)
[2019-07-09] MEDS: KETOROLAC 30 MG/ML VIAL (J1885) IV SCH ×2 (16:42→23:02)
[2019-07-10 02:00] VITALS: BP 111/71
[2019-07-10] MEDS: LR 1,000 ML IV SCH (03:00)
[2019-07-10] MEDS: KETOROLAC 30 MG/ML VIAL (J1885) IV SCH (05:12)
[2019-07-10 06:16] VITALS: BP 98/57
[2019-07-10 06:49] LABS: HEMATOCRIT 24.6 % (36.0-47.0); HEMOGLOBIN 8.3 g/dl (12.0-15.5); MEAN CORPUSCULAR HEMOGLOBIN 30.5 pg (27.0-33.0); MEAN CORPUSCULAR HGB CONC 33.7 g/dl (32.0-36.5); MEAN CORPUSCULAR VOLUME 90.4 fl (80.0-96.0); PLATELET COUNT, AUTOMATED 128 10^3/uL (150-450); RED BLOOD COUNT 2.72 10^6/uL (4.00-5.40); WHITE BLOOD COUNT 12.9 10^3/uL (4.0-10.0)
--- NOTE | 2019-07-10 07:21 | IPNPDOC ---
Progress Note Date of Service: Jul 10, 2019 Day#: 1 Progress Note SUBJECT: Patient is a 23-year-old 3 now Para 1-2-0-3 status post PLTCS secondary to continuous bleeding from placenta previa at 35-3/7 weeks' at approximately 1016 hours on 07/09/2019 of a baby girl at 5 pounds 10 ounces (2548 grams), doing well day #1. She has been ambulating, voiding spontaneously without issue and tolerating regular diet.Reports her pain is well controlled. Patient is ambulating well. Voiding and stooling without difficulty. OBJECTIVE: VITAL SIGNS: Within normal limits, afebrile. Alert and oriented times three. Breath sounds clear to auscultation. Heart rate: Regular rate and rhythm, no murmurs, rubs or gallops. Abdomen: Fundus firm at U-2. Soft, NTTP. ASSESSMENT: Patient is a 23-year-old 3 now Para 1-2-0-3 status post C/S secondary to placenta previa after presenting with vaginal bleeding, delivered at 1016 hours and 35-3/7 weeks', doing well on day 1. Vitals within normal limits, afebrile, hemodynamically stable with no evidence of infection. PLAN: 1. Continue to monitor throughout the day, AM hgb stable at 8.3, no transfusion necessary, anticipate D/C tomorrow. 2. Tylenol and Motrin for pain. 3. Encourage ambulation. 4. Routine PP visit in 6 weeks in clinic. VS, I&O, 24H, Fishbone Vital Signs/I&O Vital Signs Date Time Temp Pulse Resp B/P (MAP) Pulse Ox O2 Delivery O2 Flow Rate FiO2 07/10/19 06:16 97.9 70 14 98/57 (71) 98 Room Air I&O- Last 24 Hours up to 6 AM 07/10/19 06:00 Intake Total 1926 ml Output Total 2150 ml Balance -224 ml Laboratory Data 24H LABS Laboratory Tests 2 07/09/19 15:02: Nucleated Red Blood Cells % (auto) 0.0 07/10/19 06:30: Nucleated Red Blood Cells % (auto) 0.0 CBC/BMP Laboratory Tests 07/09/19 15:02 07/10/19 06:30 GME ATTESTATION GME ATTESTATION My faculty preceptor for this patient encounter was physically present during the encounter and was fully available. All aspects of the patient interview, examination, medical decision making process, and medical care plan development were reviewed and approved by the faculty preceptor. The faculty preceptor is aware and concurs with the plan as stated in the body of this note and will attest to such by his/her cosignature. SAHIL LITTLEJOHN DO Jul 10, 2019 07:21
[2019-07-10] MEDS ORDERED: OXYC1TAB23 PO (08:04)
[2019-07-10] MEDS ORDERED: IBUP80TA PO (08:05)
[2019-07-10] MEDS: PRENATAL VITAMINS CHEWABLE TABLET PO SCH (08:10)
[2019-07-10 10:00] VITALS: BP 111/52
[2019-07-10] MEDS ORDERED: IBUPROFEN 800 MG TAB PO SCH (13:00)
[2019-07-10 15:25] VITALS: BP 124/64
[2019-07-10] MEDS ORDERED: HYDROcodone/APAP LIQUID 7.5-325MG 15ML UDC (LORTAB ELIXIR) PO PRN ×2 (16:15)
[2019-07-10] MEDS ORDERED: ACETAMINOPHEN 325 MG/10.15 ML UDC PO PRN ×2 (16:15→16:30)
[2019-07-10] MEDS: IBUPROFEN 100 MG/5 ML SUSP UDC DYE FREE PO SCH (17:14)
[2019-07-10 18:34] VITALS: BP 108/64
[2019-07-10 22:00] VITALS: BP 114/63
[2019-07-11] MEDS: IBUPROFEN 100 MG/5 ML SUSP UDC DYE FREE PO SCH ×3 (00:36→18:06)
[2019-07-11 06:00] VITALS: BP 113/66
--- NOTE | 2019-07-11 06:06 | IPNPDOC ---
Text Note Date of Service The patient was seen on 07/11/19. NOTE SUBJECT: Patient is a 23-year-old 3 now Para 1-2-0-3 POD#2 status post PLTCS secondary to continuous bleeding from placenta previa at 35-3/7 weeks' at approximately 1016 hours on 07/09/2019 of a baby girl at 5 pounds 10 ounces (2548 grams), doing well day #2. She has been ambulating, voiding spontaneously without issue and tolerating regular diet. Reports her pain is well controlled. Patient is ambulating well. Voiding without difficulty. OBJECTIVE: VITAL SIGNS: Within normal limits, afebrile. Alert and oriented times three. Breath sounds clear to auscultation. Heart rate: Regular rate and rhythm, no murmurs, rubs or gallops. Abdomen: Fundus firm at U-2. Soft, Nontender. ASSESSMENT: Patient is a 23-year-old 3 now Para 1-2-0-3 POD#2 status post C/S secondary to placenta previa after presenting with vaginal bleeding, delivered at 1016 hours and 35-3/7 weeks', doing well on day 2. Vitals within normal limits, afebrile, hemodynamically stable with no evidence of infection. PLAN: 1. Continue to monitor throughout the day, anticipate D/C tomorrow. 2. Tylenol and Motrin for pain. 3. Encourage ambulation. 4. Routine PP visit in 6 weeks in clinic. VS,Fishbone, I+O VS, Fishbone, I+O Laboratory Tests 07/10/19 06:30 Vital Signs Date Time Temp Pulse Resp B/P (MAP) Pulse Ox O2 Delivery O2 Flow Rate FiO2 07/11/19 06:00 97.9 77 16 113/66 (82) 07/10/19 15:25 97 07/10/19 06:16 Room Air GME ATTESTATION GME ATTESTATION My faculty preceptor for this patient encounter was physically present during the encounter and was fully available. All aspects of the patient interview, examination, medical decision making process, and medical care plan development were reviewed and approved by the faculty preceptor. The faculty preceptor is aware and concurs with the plan as stated in the body of this note and will attest to such by his/her cosignature. SABINO SILVEIRA D.O. Jul 11, 2019 06:06
[2019-07-11 07:30] VITALS: BP 113/66
[2019-07-11] MEDS: PRENATAL VITAMINS CHEWABLE TABLET PO SCH (11:13)
[2019-07-11 18:36] VITALS: BP 137/75
[2019-07-12] MEDS: IBUPROFEN 100 MG/5 ML SUSP UDC DYE FREE PO SCH ×2 (00:19→08:50)
[2019-07-12 05:49] VITALS: BP 118/63
[2019-07-12] MEDS: PRENATAL VITAMINS CHEWABLE TABLET PO SCH (08:49)
== END 2019-07-12 11:55 | disposition home or self-care (01) | DRG 540 ==
LOC: M LDO 00:06 → M LDI 00:49 → M OBS 12:45
PROVIDERS: ADMIT Advanced Practice Midwife; ATTEND Specialist
PROC: 10D00Z1 Extraction of Products of Conception, Low, Open Approach (ICD-10-PCS; principal; 2019-07-09 07:41)
DX: O44.13 Complete placenta previa with hemorrhage, third trimester (principal); Z3A.35 35 weeks gestation of pregnancy; O99.334 Smoking (tobacco) complicating childbirth; F17.210 Nicotine dependence, cigarettes, uncomplicated; O99.02 Anemia complicating childbirth; D64.9 Anemia, unspecified; O60.14X0 Preterm labor third trimester with preterm delivery third trimester, not applicable or unspecified; Z37.0 Single live birth

== ENCOUNTER 2020-04-16 01:31 | Emergency (ER) | payer MEDICAID, OTHER ==
[~2020-04-16] VITALS: Ht 154.9 cm; Wt 50.0 kg
[~2020-04-16 01:31] MED LIST changes: +OXYC1TAB23 PO
--- NOTE | 2020-04-16 03:57 | REPVR ---
PROCEDURE INFORMATION: Exam: US Pelvis Complete, Transabdominal and US Duplex Artery and Vein, Ovaries, Complete Exam date and time: 04/16/2020 3:08 AM Age: 24 years old Clinical indication: Pelvic pain; Additional info: Sudden pain R/O ovarian cyst rupture/torsion TECHNIQUE: Imaging protocol: Real-time transabdominal pelvic ultrasound with image documentation. Real-time duplex ultrasound scan of the arterial and venous flow of the ovaries with B-mode, color Doppler flow and spectral waveform analysis. Complete Pelvis, Complete Duplex. COMPARISON: US PELVIC NON-OB COMPLETE 08/25/2018 1:07 AM FINDINGS: Uterus/cervix: Uterus measures 9.4 x 4.8 x 6.2 cm. Endometrial stripe is 3 mm. Right adnexa: Right ovary measures 5 x 3 x 2.8 cm. Normal waveforms. There is suggestion of an involuting 1.8 x 2.2 x 1.3 cm right ovarian corpus luteal cyst. Left adnexa: Left ovary measures 3 x 2 x 2.2 cm. Normal waveforms. Free fluid: Small amount of fluid around right adnexa. Bladder: Normal. IMPRESSION: Suggestion of an involuting 1.8 x 2.2 x 1.3 cm right ovarian corpus luteal cyst. Small amount of fluid around right adnexa. No evidence of ovarian torsion bilaterally. Electronically signed by: Randy Regalado On 04/16/2020 03:57:34 AM
[2020-04-16] MEDS ORDERED: KETOROLAC 30 MG/ML 1ML VIAL IV ONE (04:15)
[2020-04-16] MEDS ORDERED: NAPR-837 PO (05:29)
[2020-04-16 05:50] VITALS: BP 115/65
== END 2020-04-16 06:09 | disposition home or self-care (01) ==
LOC: M ED 01:31
DX: N83.291 Other ovarian cyst, right side (principal); F17.200 Nicotine dependence, unspecified, uncomplicated; Z88.0 Allergy status to penicillin
CPT/HCPCS: 76856; 80047; 84702; 96374; 99284; J1885

== ENCOUNTER 2020-10-11 10:17 | Emergency (ER) | payer OTHER ==
[~2020-10-11] VITALS: Ht 154.9 cm; Wt 52.0 kg
[~2020-10-11 10:17] MED LIST changes: -DOXY100C37 PO; +DOXY1CAP62 PO; +NAPR-837 PO
[2020-10-11] MEDS ORDERED: NS 1,000 ML IV ONE (15:40)
[2020-10-11 16:17] LABS: BASO % 0.2 % (0.0-1.0); EOS # 0.1 10^3/uL (0.0-0.5); EOS % 0.6 % (0.0-3.0); HEMATOCRIT 44.1 % (36.0-47.0); HEMOGLOBIN 14.5 g/dl (12.0-15.5); LYMPH % 27.6 % (24.0-44.0); MEAN CORPUSCULAR HEMOGLOBIN 30.3 pg (27.0-33.0); MEAN CORPUSCULAR HGB CONC 32.9 g/dl (32.0-36.5); MEAN CORPUSCULAR VOLUME 92.3 fl (80.0-96.0); MONO # 0.6 10^3/uL (0.0-0.8); MONO % 5.3 % (2.0-8.0); NEUTROPHILS # 7.2 10^3/uL (1.5-8.5); NEUTROPHILS % 65.9 % (36.0-66.0); PLATELET COUNT, AUTOMATED 266 10^3/uL (150-450); RED BLOOD COUNT 4.78 10^6/uL (4.00-5.40); WHITE BLOOD COUNT 10.9 10^3/uL (4.0-10.0)
[2020-10-11 16:30] LABS: BLOOD UREA NITROGEN 11 MG/DL (7-18); CALCIUM LEVEL 9.6 MG/DL (8.5-10.1); CARBON DIOXIDE LEVEL 26 MEQ/L (21-32); CHLORIDE LEVEL 102 MEQ/L (98-107); CPK CREATINE PHOSPHOKINASE 52 U/L (26-192); CREATININE FOR GFR 0.69 MG/DL (0.55-1.30); GLOMERULAR FILTRATION RATE > 60.0 (>60); GLUCOSE, FASTING 84 MG/DL (70-100); POTASSIUM SERUM 4.1 MEQ/L (3.5-5.1); SODIUM LEVEL 135 MEQ/L (136-145)
[2020-10-11 16:50] VITALS: BP 124/74
== END 2020-10-11 16:56 | disposition home or self-care (01) ==
LOC: M ED 10:17
DX: L55.9 Sunburn, unspecified (principal); F17.200 Nicotine dependence, unspecified, uncomplicated; Z88.0 Allergy status to penicillin

== ENCOUNTER 2021-01-14 18:48 | Emergency (ER) | payer OTHER ==
[~2021-01-14] VITALS: Ht 154.9 cm; Wt 51.4 kg
[2021-01-14 18:49] VITALS: BP 151/80
== END 2021-01-14 23:01 | disposition left against medical advice (07) ==
LOC: M ED 18:48
DX: Z53.29 Procedure and treatment not carried out because of patient's decision for other reasons (principal)

== ENCOUNTER → 2021-01-15 | Outpatient (REF) | payer OTHER | LOC: M LAB REF 18:44 | PROVIDERS: ATTEND Physician Assistant | DX: R05.9 Cough, unspecified (principal) ==

== ENCOUNTER → 2021-02-16 | Outpatient (REF) ==
[~2021-02-16] MED LIST changes: +DOXY-443 PO; -DOXY1CAP62 PO
[2021-02-16 13:11] LABS: RSV AMPLIFICATION NEGATIVE (NEGATIVE)
== END ==
LOC: M EMP 11:08
PROVIDERS: ATTEND Family Medicine
DX: Z11.52 Encounter for screening for COVID-19 (principal); Z20.822 Contact with and (suspected) exposure to COVID-19

== ENCOUNTER → 2021-03-06 | Outpatient (CLI) | payer OTHER ==
[~2021-03-06] MED LIST changes: +MULTTAB20 PO; +ZOFR4TAB16 PO
[2021-03-06 16:50] LABS: BASO % 0.2 % (0.0-1.0); EOS % 0.4 % (0.0-3.0); HEMOGLOBIN 12.9 g/dl (12.0-15.5); LYMPH # 2.4 10^3/uL (1.5-5.0); LYMPH % 23.8 % (24.0-44.0); MEAN CORPUSCULAR HEMOGLOBIN 30.5 pg (27.0-33.0); MEAN CORPUSCULAR HGB CONC 33.1 g/dl (32.0-36.5); MEAN CORPUSCULAR VOLUME 92.2 fl (80.0-96.0); MONO # 0.5 10^3/uL (0.0-0.8); MONO % 5.2 % (2.0-8.0); PLATELET COUNT, AUTOMATED 175 10^3/uL (150-450); RED BLOOD COUNT 4.23 10^6/uL (4.00-5.40)
[2021-03-06 19:10] LABS: GC DNA AMPLIFICATION NEGATIVE (NEGATIVE)
[2021-03-06 19:34] LABS: HEPATITIS C VIRUS ABY INDEX 0.1 INDEX (<0.8); HIV 1&2 SCREEN CENTAUR NEGATIVE (NEGATIVE)
== END ==
LOC: M PLALAB 13:40
PROVIDERS: ATTEND Advanced Practice Midwife
DX: Z36.9 Encounter for antenatal screening, unspecified (principal); Z3A.00 Weeks of gestation of pregnancy not specified

== ENCOUNTER 2021-04-02 17:27 | Emergency (ER) | payer OTHER ==
[~2021-04-02] VITALS: Ht 154.9 cm; Wt 52.3 kg
[~2021-04-02 17:27] MED LIST changes: -MULTTAB20 PO; -ZOFR4TAB16 PO
[2021-04-02] MEDS ORDERED: NS 1,000 ML IV ONE (19:25)
[2021-04-02] MEDS ORDERED: ONDANSETRON 4MG/2ML VIAL IV ONE (19:25)
[2021-04-02 20:06] LABS: BASO % 0.1 % (0.0-1.0); EOS # 0.1 10^3/uL (0.0-0.5); EOS % 1.4 % (0.0-3.0); HEMATOCRIT 34.5 % (36.0-47.0); HEMOGLOBIN 11.6 g/dl (12.0-15.5); LYMPH # 2.3 10^3/uL (1.5-5.0); LYMPH % 31.4 % (24.0-44.0); MEAN CORPUSCULAR HEMOGLOBIN 30.8 pg (27.0-33.0); MEAN CORPUSCULAR HGB CONC 33.6 g/dl (32.0-36.5); MEAN CORPUSCULAR VOLUME 91.5 fl (80.0-96.0); MONO # 0.5 10^3/uL (0.0-0.8); MONO % 7.1 % (2.0-8.0); NEUTROPHILS # 4.4 10^3/uL (1.5-8.5); NEUTROPHILS % 59.7 % (36.0-66.0); PLATELET COUNT, AUTOMATED 169 10^3/uL (150-450); RED BLOOD COUNT 3.77 10^6/uL (4.00-5.40); WHITE BLOOD COUNT 7.3 10^3/uL (4.0-10.0)
[2021-04-02 20:17] LABS: RSV AMPLIFICATION NEGATIVE (NEGATIVE)
[2021-04-02 20:29] LABS: ALT/SGPT 13 U/L (12-78); BILIRUBIN,DIRECT < 0.1 MG/DL (0.0-0.2); BILIRUBIN,TOTAL 0.2 MG/DL (0.2-1.0); BLOOD UREA NITROGEN 11 MG/DL (7-18); CALCIUM LEVEL 8.7 MG/DL (8.5-10.1); CARBON DIOXIDE LEVEL 24 MEQ/L (21-32); CHLORIDE LEVEL 107 MEQ/L (98-107); CREATININE FOR GFR 0.48 MG/DL (0.55-1.30); GLOMERULAR FILTRATION RATE > 60.0 (>60); GLUCOSE, FASTING 80 MG/DL (70-100); LIPASE 55 U/L (73-393); POTASSIUM SERUM 3.7 MEQ/L (3.5-5.1); SODIUM LEVEL 139 MEQ/L (136-145); TOTAL PROTEIN 6.7 GM/DL (6.4-8.2)
[2021-04-02 22:03] VITALS: BP 106/57
== END 2021-04-02 22:19 | disposition home or self-care (01) ==
LOC: M ED 17:27
DX: O9A.212 Injury, poisoning and certain other consequences of external causes complicating pregnancy, second trimester (principal); R11.2 Nausea with vomiting, unspecified; R52 Pain, unspecified; T50.Z95A Adverse effect of other vaccines and biological substances, initial encounter; O99.342 Other mental disorders complicating pregnancy, second trimester; F31.9 Bipolar disorder, unspecified; Z3A.14 14 weeks gestation of pregnancy; Z88.0 Allergy status to penicillin; O99.332 Smoking (tobacco) complicating pregnancy, second trimester; F17.210 Nicotine dependence, cigarettes, uncomplicated
CPT/HCPCS: 80048; 80076; 81001; 83690; 85025; 87631; 96361; 96374; 99284; J2405

== ENCOUNTER 2021-04-12 07:40 | Emergency (ER) | payer OTHER ==
[~2021-04-12] VITALS: Ht 154.9 cm; Wt 52.3 kg
[2021-04-12] MEDS ORDERED: ZOFR4TAB16 PO (08:24)
[2021-04-12] MEDS ORDERED: MULTTAB20 PO (08:25)
[2021-04-12 09:14] LABS: BASO % 0.1 % (0.0-1.0); EOS % 0.4 % (0.0-3.0); HEMATOCRIT 32.5 % (36.0-47.0); HEMOGLOBIN 10.9 g/dl (12.0-15.5); LYMPH % 20.9 % (24.0-44.0); MEAN CORPUSCULAR HEMOGLOBIN 30.8 pg (27.0-33.0); MEAN CORPUSCULAR HGB CONC 33.5 g/dl (32.0-36.5); MEAN CORPUSCULAR VOLUME 91.8 fl (80.0-96.0); MONO # 0.4 10^3/uL (0.0-0.8); MONO % 4.6 % (2.0-8.0); NEUTROPHILS # 7.1 10^3/uL (1.5-8.5); NEUTROPHILS % 73.7 % (36.0-66.0); PLATELET COUNT, AUTOMATED 171 10^3/uL (150-450); RED BLOOD COUNT 3.54 10^6/uL (4.00-5.40); WHITE BLOOD COUNT 9.6 10^3/uL (4.0-10.0)
[2021-04-12 09:59] LABS: BLOOD UREA NITROGEN 9 MG/DL (7-18); CALCIUM LEVEL 8.6 MG/DL (8.5-10.1); CARBON DIOXIDE LEVEL 24 MEQ/L (21-32); CHLORIDE LEVEL 108 MEQ/L (98-107); CREATININE FOR GFR 0.43 MG/DL (0.55-1.30); GLOMERULAR FILTRATION RATE > 60.0 (>60); GLUCOSE, FASTING 82 MG/DL (70-100); POTASSIUM SERUM 4.1 MEQ/L (3.5-5.1); SODIUM LEVEL 139 MEQ/L (136-145)
[2021-04-12] MEDS ORDERED: ACETAMINOPHEN TAB 650MG DOSE (2X325MG) PO ONE (13:00)
[2021-04-12 13:11] LABS: HCG, SERUM QUANTITATIVE 21999 MIU/ML
[2021-04-12 14:35] VITALS: BP 118/74
[2021-04-12 14:36] LABS: GC DNA AMPLIFICATION NEGATIVE (NEGATIVE)
== END 2021-04-12 14:36 | disposition home or self-care (01) ==
LOC: M ED 07:40
DX: R10.30 Lower abdominal pain, unspecified (principal); Z3A.15 15 weeks gestation of pregnancy; Z88.0 Allergy status to penicillin; O99.332 Smoking (tobacco) complicating pregnancy, second trimester; F17.210 Nicotine dependence, cigarettes, uncomplicated
CPT/HCPCS: 36415; 76811; 80048; 81001; 84702; 85025; 86850; 86900; 86901; 87086; 87210; 87661; 93976; 99283; U0003

== ENCOUNTER → 2021-05-29 | Outpatient (CLI) | payer OTHER ==
[~2021-05-29] MED LIST changes: +MULTTAB20 PO; +ZOFR4TAB16 PO
== END ==
LOC: M RAD 15:43
PROVIDERS: ATTEND Advanced Practice Midwife
DX: Z34.92 Encounter for supervision of normal pregnancy, unspecified, second trimester (principal)

== ENCOUNTER 2021-06-27 13:05 | Outpatient (CLI) | payer OTHER ==
[~2021-06-27] VITALS: Ht 154.9 cm; Wt 56.1 kg
[2021-06-27 13:22] VITALS: BP 120/67
[2021-06-27] MEDS ORDERED: HOME MED LIST COMPLETE! XX SCH (13:30)
== END 2021-06-27 13:53 | disposition home or self-care (01) ==
LOC: M LDO 13:05
PROVIDERS: ATTEND Obstetrics & Gynecology
DX: O26.892 Other specified pregnancy related conditions, second trimester (principal); N89.8 Other specified noninflammatory disorders of vagina; R10.2 Pelvic and perineal pain; Z3A.25 25 weeks gestation of pregnancy

== ENCOUNTER → 2021-09-15 | Outpatient (REF) | payer OTHER | LOC: M SFHCWAGY 13:21 | PROVIDERS: ATTEND Specialist | DX: Z36.89 Encounter for other specified antenatal screening (principal) ==

== ENCOUNTER → 2021-12-19 | Outpatient (CLI) | payer OTHER | LOC: M LABSMTC 11:01 | PROVIDERS: ATTEND Anesthesiology | DX: Z01.812 Encounter for preprocedural laboratory examination (principal); Z11.52 Encounter for screening for COVID-19 ==

== ENCOUNTER 2021-12-21 08:18 | Day surgery (SDC) | payer OTHER ==
[~2021-12-21] VITALS: Ht 154.9 cm; Wt 52.2 kg
[~2021-12-21 08:18] MED LIST changes: +BUPIVACAINE HCL 0.25% 30ML VIAL As Ordered ONE
[2021-12-21] MEDS ORDERED: BUPIVACAINE HCL 0.25% 10ML VIAL As Ordered ONE (09:00)
[2021-12-21] MEDS ORDERED: LR 1,000 ML IV SCH ×3 (09:00→12:50)
[2021-12-21] MEDS ORDERED: MIDAZOLAM INJ 2MG/2ML VIAL (J2250 PER 1MG) As Ordered ONE (09:16)
[2021-12-21] MEDS ORDERED: fentaNYL 100 MCG/2 ML INJECTION As Ordered ONE (09:17)
[2021-12-21] MEDS ORDERED: ROCURONIUM BROMIDE 50 MG/5 ML VIAL As Ordered ONE (09:18)
[2021-12-21] MEDS ORDERED: LIDOCAINE 2% 100MG/5ML SDV (FOR ANES.) As Ordered ONE (09:19)
[2021-12-21] MEDS ORDERED: dexameTHASONE 4 MG/ML 1ML VIAL (J1100 PER 1MG) As Ordered ONE (09:23)
[2021-12-21 09:54] LABS: HEMATOCRIT 36.5 % (36.0-47.0); HEMOGLOBIN 11.8 g/dl (12.0-15.5); MEAN CORPUSCULAR HEMOGLOBIN 27.8 pg (27.0-33.0); MEAN CORPUSCULAR HGB CONC 32.3 g/dl (32.0-36.5); MEAN CORPUSCULAR VOLUME 85.9 fl (80.0-96.0); PLATELET COUNT, AUTOMATED 203 10^3/uL (150-450); RED BLOOD COUNT 4.25 10^6/uL (4.00-5.40); WHITE BLOOD COUNT 8.3 10^3/uL (4.0-10.0)
[2021-12-21] MEDS ORDERED: ONDANSETRON 4MG 2ML VIAL As Ordered ONE (11:12)
[2021-12-21] MEDS ORDERED: ACETAMINOPHEN 1000MG 100ML IV BTL (OFIRMEV) (J0131 PER 10MG) As Ordered ONE (11:14)
[2021-12-21] MEDS ORDERED: KETOROLAC 60MG 2ML VIAL As Ordered ONE (11:17)
[2021-12-21] MEDS ORDERED: SUGAMMADEX SODIUM 500 MG/5 ML VIAL (BRIDION) As Ordered ONE (11:27)
[2021-12-21] MEDS ORDERED: OXYC1TAB23 PO (11:42)
[2021-12-21] MEDS ORDERED: IBUP-1022 PO (11:43)
[2021-12-21] MEDS ORDERED: ONDANSETRON 4MG 2ML VIAL IV PRN (11:45)
[2021-12-21] MEDS ORDERED: fentaNYL 100 MCG/2 ML INJECTION IV PRN (11:45)
[2021-12-21] MEDS ORDERED: oxyCODONE 5MG TAB PO PRN (11:45)
[2021-12-21] MEDS ORDERED: MEPERIDINE INJ 25 MG/ML VIAL (J2175) As Ordered ONE (11:49)
[2021-12-21] MEDS: MEPERIDINE INJ 25 MG/ML VIAL (J2175) IV PRN ×2 (11:53→12:06)
[2021-12-21] MEDS ORDERED: propofoL 200 MG/20 ML VIAL As Ordered ONE (12:19)
[2021-12-21] MEDS ORDERED: PERCOCET 5MG/325MG TAB PO PRN (12:55)
[2021-12-21 14:25] VITALS: BP 131/80
== END 2021-12-21 14:30 | disposition home or self-care (01) ==
LOC: M SDC 08:18
PROVIDERS: ATTEND Specialist
DX: Z30.2 Encounter for sterilization (principal); F90.9 Attention-deficit hyperactivity disorder, unspecified type; F17.200 Nicotine dependence, unspecified, uncomplicated; Z88.0 Allergy status to penicillin
CPT/HCPCS: 36415; 58661; 81025; 85027; 88302; J0131; J1100; J1885; J2175; J2250; J2405; J3010

== ENCOUNTER → 2022-05-01 | Outpatient (REF) ==
[~2022-05-01] MED LIST changes: -BUPIVACAINE HCL 0.25% 30ML VIAL As Ordered ONE
[2022-05-01 09:07] LABS: RSV AMPLIFICATION NEGATIVE (NEGATIVE)
== END ==
LOC: M EMP 08:01
PROVIDERS: ATTEND Family Medicine
DX: Z11.59 Encounter for screening for other viral diseases (principal)

== ENCOUNTER 2022-09-17 22:12 | Emergency (ER) | payer OTHER ==
[~2022-09-17] VITALS: Ht 160 cm; Wt 50.0 kg
[2022-09-17 22:12] VITALS: BP 115/55; TEMP 97.8; O2SAT 96
[2022-09-18 04:25] LABS: HEMATOCRIT 35.9 % (36.0-47.0); HEMOGLOBIN 11.9 g/dl (12.0-15.5); MEAN CORPUSCULAR HGB CONC 33.1 g/dl (32.0-36.5); MEAN CORPUSCULAR VOLUME 87.6 fl (80.0-96.0); PLATELET COUNT, AUTOMATED 205 10^3/uL (150-450)
[2022-09-18 04:26] LABS: BLOOD UREA NITROGEN 16 MG/DL (9-23); CALCIUM LEVEL 9.2 MG/DL (8.5-10.1); CARBON DIOXIDE LEVEL 25 MMOL/L (20-31); CHLORIDE LEVEL 107 MMOL/L (98-107); CK-MB VALUE MASS < 1.0 NG/ML (<3.6); CPK CREATINE PHOSPHOKINASE 84 U/L (34-145); CREATININE FOR GFR 0.77 MG/DL (0.55-1.30); GLOMERULAR FILTRATION RATE > 60.0 (>60); GLUCOSE, FASTING 90 MG/DL (60-100); MB/CK RELATIVE INDEX 1.19 (< OR =4); POTASSIUM SERUM 3.6 MMOL/L (3.5-5.1); SODIUM LEVEL 139 MMOL/L (136-145)
[2022-09-18 04:28] LABS: BASOPHILS 1 % (0-1); LYMPHOCYTES 31 % (16-44); MONOCYTES 4 % (0-5); NEUTROPHILS 64 % (28-66); PLATELET ESTIMATE NORMAL (NORMAL)
== END 2022-09-18 01:20 | disposition left against medical advice (07) ==
LOC: M ED 22:12
DX: F41.0 Panic disorder [episodic paroxysmal anxiety] (principal); Z53.21 Procedure and treatment not carried out due to patient leaving prior to being seen by health care provider

== ENCOUNTER → 2022-10-22 | Outpatient (REF) | LOC: M EMP 08:57 | PROVIDERS: ATTEND Family Medicine | DX: Z11.52 Encounter for screening for COVID-19 (principal) ==

== ENCOUNTER 2023-02-15 15:53 | Emergency (ER) | payer OTHER ==
[~2023-02-15] VITALS: Ht 154.9 cm; Wt 53.1 kg
[2023-02-15] MEDS ORDERED: DOCU100C16 (16:18)
[2023-02-15] MEDS ORDERED: MIRA3350 (16:18)
[2023-02-15] MEDS ORDERED: NS 1,000 ML IV ONE (21:15)
[2023-02-15] MEDS ORDERED: ONDANSETRON 4MG 2ML VIAL IV ONE (21:15)
[2023-02-15 22:04] LABS: BASO % 0.3 % (0.0-1.0); EOS # 0.1 10^3/uL (0.0-0.5); EOS % 0.8 % (0.0-3.0); HEMATOCRIT 35.2 % (36.0-47.0); HEMOGLOBIN 11.7 g/dl (12.0-15.5); LYMPH % 38.8 % (24.0-44.0); MEAN CORPUSCULAR HEMOGLOBIN 29.7 pg (27.0-33.0); MEAN CORPUSCULAR HGB CONC 33.2 g/dl (32.0-36.5); MEAN CORPUSCULAR VOLUME 89.3 fl (80.0-96.0); MONO # 0.4 10^3/uL (0.0-0.8); MONO % 5.4 % (2.0-8.0); NEUTROPHILS # 4.2 10^3/uL (1.5-8.5); NEUTROPHILS % 54.6 % (36.0-66.0); PLATELET COUNT, AUTOMATED 222 10^3/uL (150-450); RED BLOOD COUNT 3.94 10^6/uL (4.00-5.40); WHITE BLOOD COUNT 7.7 10^3/uL (4.0-10.0)
[2023-02-15] MEDS ORDERED: ACET325C5 PO (22:17)
[2023-02-15] MEDS ORDERED: ISOVUE-370 76% 100ML VIAL As Ordered ONE (22:22)
[2023-02-15] MEDS ORDERED: ACETAMINOPHEN *IV* 1,000 MG in IV 1 EA IV ONE (22:25)
[2023-02-15 22:28] LABS: LIPASE 23 U/L (12-53)
[2023-02-15 22:31] LABS: ALBUMIN 3.7 G/DL (3.2-5.2); ALKALINE PHOSPHATASE 41 U/L (46-116); ALT/SGPT 9 U/L (7.0-40); AST/SGOT < 8 U/L (<34); BILIRUBIN,DIRECT < 0.1 MG/DL (<0.4); BILIRUBIN,TOTAL 0.3 MG/DL (0.3-1.2); HCG, SERUM QUALITATIVE NEGATIVE (NEGATIVE); TOTAL PROTEIN 6.8 G/DL (5.7-8.2)
[2023-02-16] MEDS ORDERED: IBUP-1022 PO (00:39)
[2023-02-16 00:52] VITALS: BP 103/58; TEMP 97.9; O2SAT 99
== END 2023-02-16 00:54 | disposition home or self-care (01) ==
LOC: M ED 15:53
DX: R10.9 Unspecified abdominal pain (principal); Z88.0 Allergy status to penicillin
CPT/HCPCS: 74177; 76856; 80047; 80076; 81001; 83690; 84702; 84703; 85025; 93976; 96365; 96375; 99284; J0131; J2405; Q9967

== ENCOUNTER 2023-11-30 16:16 | Emergency (ER) | payer OTHER ==
[~2023-11-30] VITALS: Ht 154.9 cm; Wt 52.3 kg
[2023-11-30 16:16] VITALS: BP 139/83; TEMP 97.2; O2SAT 96
[~2023-11-30 16:16] MED LIST changes: +ACET325C5 PO; +DOCU100C16; +DOXY-323 PO; -DOXY-443 PO; +MIRA3350
== END 2023-11-30 17:15 | disposition home or self-care (01) ==
LOC: M ED 16:16
DX: S93.401A Sprain of unspecified ligament of right ankle, initial encounter (principal); X50.0XXA Overexertion from strenuous movement or load, initial encounter; Y92.9 Unspecified place or not applicable; Y93.89 Activity, other specified; Y99.0 Civilian activity done for income or pay; Z88.0 Allergy status to penicillin

== ENCOUNTER → 2023-12-10 | Outpatient (CLI) | payer OTHER | LOC: M SOG 08:17 | PROVIDERS: ATTEND Physician Assistant | DX: M25.571 Pain in right ankle and joints of right foot (principal) ==

== ENCOUNTER → 2023-12-18 | Outpatient (CLI) | payer OTHER | LOC: M RAD 07:43 | PROVIDERS: ATTEND Physician Assistant | DX: S93.401A Sprain of unspecified ligament of right ankle, initial encounter (principal); X58.XXXA Exposure to other specified factors, initial encounter; Y92.9 Unspecified place or not applicable; Y93.9 Activity, unspecified; Y99.9 Unspecified external cause status ==

== ENCOUNTER 2024-01-16 15:45 | Outpatient (RCR) | payer OTHER ==
[~2024-01-16 15:45] MED LIST changes: -DOXY-323 PO; +DOXY-441 PO
== END 2024-02-06 ==
LOC: M PT 15:45
PROVIDERS: ATTEND Physician Assistant
DX: S93.401A Sprain of unspecified ligament of right ankle, initial encounter (principal)

== ENCOUNTER 2024-06-02 14:21 | Outpatient (RCR) | payer OTHER | END 2024-06-05 | LOC: M PT 14:21 | PROVIDERS: ATTEND Family Medicine | DX: S93.491D Sprain of other ligament of right ankle, subsequent encounter (principal) ==

== ENCOUNTER → 2024-07-06 | Outpatient (RCR) | payer OTHER | LOC: M PT 06-09 14:20 | PROVIDERS: ATTEND Family Medicine | DX: S93.491D Sprain of other ligament of right ankle, subsequent encounter (principal) ==

== ENCOUNTER → 2024-07-14 | Outpatient (REF) | LOC: M EMP 08:46 | PROVIDERS: ATTEND Family Medicine | DX: Z01.89 Encounter for other specified special examinations (principal) ==

== ENCOUNTER 2024-07-21 07:45 | Outpatient (RCR) | payer OTHER | END 2024-08-05 | LOC: M PT 07:45 | PROVIDERS: ATTEND Family Medicine | DX: S93.491D Sprain of other ligament of right ankle, subsequent encounter (principal) ==

== ENCOUNTER → 2024-07-27 | Outpatient (REF) | payer OTHER ==
[2024-07-27 18:28] LABS: IRON (FE) 91 UG/DL (50-170); PERCENT SATURATION 23.8 % (13.2-45.0); TOTAL IRON BINDING CAPACITY 383 UG/DL (250-425)
[2024-07-27 18:29] LABS: ALBUMIN 4.1 G/DL (3.2-5.2); ALKALINE PHOSPHATASE 41 U/L (35-104); ALT/SGPT 15 U/L (7.0-40); AST/SGOT 10 U/L (<34); BILIRUBIN,TOTAL 0.4 MG/DL (0.3-1.2); BLOOD UREA NITROGEN 16 MG/DL (9-23); CALCIUM LEVEL 9.3 MG/DL (8.5-10.1); CARBON DIOXIDE LEVEL 28 MMOL/L (20-31); CHLORIDE LEVEL 105 MMOL/L (98-107); CHOLESTEROL LEVEL 154 MG/DL (<200); CHOLESTEROL RISK RATIO 2.59 (<5); CREATININE FOR GFR 0.68 MG/DL (0.55-1.30); GLOMERULAR FILTRATION RATE > 90.0 (>60); GLUCOSE, FASTING 74 MG/DL (60-100); HDL CHOLESTEROL 59.3 MG/DL (>40); LDL CHOLESTEROL 76.1 MG/DL (<100); NON-HDL-C 94.7 MG/DL; POTASSIUM SERUM 4.2 MMOL/L (3.5-5.1); SODIUM LEVEL 138 MMOL/L (136-145); TOTAL PROTEIN 6.9 G/DL (5.7-8.2); TRIGLYCERIDES LEVEL 93 MG/DL (<150)
[2024-07-27 18:32] LABS: BASO % 0.4 % (0.0-1.0); EOS # 0.1 10^3/uL (0.0-0.5); EOS % 0.7 % (0.0-3.0); FERRITIN 6.9 NG/ML (7.3-270.7); HEMATOCRIT 37.8 % (36.0-47.0); HEMOGLOBIN 12.4 g/dl (12.0-15.5); LYMPH # 2.7 10^3/uL (1.5-5.0); LYMPH % 31.7 % (24.0-44.0); MEAN CORPUSCULAR HEMOGLOBIN 29.2 pg (27.0-33.0); MEAN CORPUSCULAR HGB CONC 32.8 g/dl (32.0-36.5); MEAN CORPUSCULAR VOLUME 89.2 fl (80.0-96.0); MONO # 0.5 10^3/uL (0.0-0.8); MONO % 5.4 % (2.0-8.0); NEUTROPHILS # 5.3 10^3/uL (1.5-8.5); NEUTROPHILS % 61.6 % (36.0-66.0); PLATELET COUNT, AUTOMATED 236 10^3/uL (150-450); RED BLOOD COUNT 4.24 10^6/uL (4.00-5.40); TOTAL 25(OH) VITAMIN D 25.7 NG/ML (20.0-100.0); WHITE BLOOD COUNT 8.6 10^3/uL (4.0-10.0)
[2024-07-27 18:33] LABS: THYROID STIMULATING HORMONE 0.326 uIU/ML (0.55-4.78)
[2024-07-27 19:02] LABS: HIV 1&2 SCREEN NEGATIVE (NEGATIVE)
[2024-07-27 19:10] LABS: HEPATITIS C VIRUS ABY INDEX 0.04 INDEX (<0.8)
== END ==
LOC: M LAB REF 17:29
PROVIDERS: ATTEND Physician Assistant
DX: E55.9 Vitamin D deficiency, unspecified (principal); Z11.9 Encounter for screening for infectious and parasitic diseases, unspecified; D64.9 Anemia, unspecified; E66.9 Obesity, unspecified

== ENCOUNTER 2024-10-18 16:11 | Emergency (ER) | payer OTHER ==
[~2024-10-18] VITALS: Ht 157.5 cm; Wt 56.6 kg
[2024-10-18] MEDS ORDERED: PREG50CA3 (16:27)
[2024-10-18] MEDS ORDERED: LARI1TAB3 (16:27)
[2024-10-18 19:22] VITALS: BP 122/87; TEMP 97; O2SAT 99
== END 2024-10-18 19:27 | disposition home or self-care (01) ==
LOC: M ED 16:11
DX: J02.9 Acute pharyngitis, unspecified (principal); Z88.0 Allergy status to penicillin; Z79.899 Other long term (current) drug therapy

== ENCOUNTER → 2024-10-27 | Outpatient (CLI) | payer OTHER ==
[~2024-10-27] MED LIST changes: -IBUP-1022 PO; +IBUP600T42 PO; +ISOVUE-370 76% 100 ML VIAL As Ordered ONE; +LARI1TAB3; +PREG50CA3
== END ==
LOC: M RAD 15:11
PROVIDERS: ATTEND Physician Assistant
DX: R10.30 Lower abdominal pain, unspecified (principal); R93.89 Abnormal findings on diagnostic imaging of other specified body structures; N83.201 Unspecified ovarian cyst, right side; N83.202 Unspecified ovarian cyst, left side
CPT/HCPCS: 74177; 80053; 83690; 84703; 85025; Q9967

== ENCOUNTER → 2024-10-27 | Outpatient (REF) | payer OTHER ==
[~2024-10-27] MED LIST changes: +IBUP-1022 PO; -IBUP600T42 PO; -ISOVUE-370 76% 100 ML VIAL As Ordered ONE
[2024-10-27 12:35] LABS: ALT/SGPT 15 U/L (7.0-40); AST/SGOT 14 U/L (<34); CALCIUM LEVEL 9.6 MG/DL (8.5-10.1); CARBON DIOXIDE LEVEL 30 MMOL/L (20-31); CHLORIDE LEVEL 101 MMOL/L (98-107); CREATININE FOR GFR 0.82 MG/DL (0.55-1.30); GLOMERULAR FILTRATION RATE > 90.0 (>60); POTASSIUM SERUM 4.0 MMOL/L (3.5-5.1); SODIUM LEVEL 141 MMOL/L (136-145)
[2024-10-27 12:40] LABS: BASO # 0.0 10^3/uL (0.0-0.2); BASO % 0.3 % (0.0-1.0); EOS # 0.0 10^3/uL (0.0-0.5); EOS % 0.6 % (0.0-3.0); LYMPH # 2.2 10^3/uL (1.5-5.0); LYMPH % 30.6 % (24.0-44.0); MONO # 0.5 10^3/uL (0.0-0.8); MONO % 6.7 % (2.0-8.0); NEUTROPHILS # 4.5 10^3/uL (1.5-8.5); NEUTROPHILS % 61.7 % (36.0-66.0); PLATELET COUNT, AUTOMATED 250 10^3/uL (150-450)
[2024-10-27 12:43] LABS: HCG, SERUM QUALITATIVE NEGATIVE (NEGATIVE)
== END ==
LOC: M LAB REF 11:59
PROVIDERS: ATTEND Physician Assistant
DX: R10.30 Lower abdominal pain, unspecified (principal)

== ENCOUNTER → 2024-11-17 | Outpatient (CLI) | payer OTHER | LOC: M RAD 14:24 | PROVIDERS: ATTEND Physician Assistant | DX: R10.2 Pelvic and perineal pain (principal); N83.291 Other ovarian cyst, right side ==

== ENCOUNTER → 2024-12-15 | Outpatient (REF) | payer OTHER ==
[~2024-12-15] MED LIST changes: +CIPR-249 PO; -IBUP-1022 PO; +IBUP600T42 PO; +KETO-204 PO; +ONDA-282 PO
[2024-12-16 07:41] LABS: Trichomonas vaginalis (AMP) NOT DETECTED (NEGATIVE)
[2024-12-16 08:05] LABS: GC DNA AMPLIFICATION NEGATIVE (NEGATIVE)
== END ==
LOC: M LAB REF 21:00
PROVIDERS: ATTEND Physician Assistant
DX: R39.14 Feeling of incomplete bladder emptying (principal)

== ENCOUNTER 2024-12-21 15:28 | Emergency (ER) | payer OTHER ==
[~2024-12-21] VITALS: Ht 157.5 cm; Wt 54.5 kg
[~2024-12-21 15:28] MED LIST changes: -CIPR-249 PO; -KETO-204 PO; -ONDA-282 PO
[2024-12-21] MEDS: ONDANSETRON 4MG 2ML VIAL IV ONE (17:32)
[2024-12-21] MEDS: KETOROLAC 30 MG/ML 1 ML VIAL IV ONE (17:32)
[2024-12-21 17:48] LABS: KETONE, URINE AUTO RFX 1+ mg/dL (NEGATIVE); MUCUS, URINE RFX SMALL (NEGATIVE); NITRITE, URINE AUTO RFX NEGATIVE (NEGATIVE); RBC, URINE AUTO RFX 3 /HPF (0-3); SQUAM EPITHELIAL CELL UR AURFX 4 /HPF (0-6)
[2024-12-21 17:51] LABS: LEUKOCYTE ESTERASE UR AUTO RFX 1+ (NEGATIVE); WBC, URINE AUTO RFX 18 /HPF (0-3)
[2024-12-21 17:57] LABS: HCG, SERUM QUALITATIVE NEGATIVE (NEGATIVE)
[2024-12-21 17:59] LABS: ALT/SGPT 13 U/L (7.0-40); AST/SGOT 14 U/L (<34); C REACTIVE PROTEIN QUANTITATIV 2.86 MG/DL (<1.0); CALCIUM LEVEL 9.1 MG/DL (8.5-10.1); CARBON DIOXIDE LEVEL 27 MMOL/L (20-31); CHLORIDE LEVEL 100 MMOL/L (98-107); CREATININE FOR GFR 0.71 MG/DL (0.55-1.30); GLOMERULAR FILTRATION RATE > 90.0 (>60); POTASSIUM SERUM 3.8 MMOL/L (3.5-5.1); SODIUM LEVEL 138 MMOL/L (136-145)
[2024-12-21 18:00] LABS: BASO # 0.0 10^3/uL (0.0-0.2); BASO % 0.3 % (0.0-1.0); EOS # 0.0 10^3/uL (0.0-0.5); EOS % 0.2 % (0.0-3.0); LYMPH # 2.3 10^3/uL (1.5-5.0); LYMPH % 21.7 % (24.0-44.0); MONO # 0.6 10^3/uL (0.0-0.8); MONO % 5.8 % (2.0-8.0); NEUTROPHILS # 7.5 10^3/uL (1.5-8.5); NEUTROPHILS % 71.7 % (36.0-66.0); PLATELET COUNT, AUTOMATED 232 10^3/uL (150-450)
[2024-12-21] MEDS ORDERED: ISOVUE-370 76% 100 ML VIAL As Ordered ONE (18:00)
[2024-12-21 18:06] LABS: ERYTHROCYTE SEDIMENTATION RATE 27 mm/hr (0-20)
[2024-12-21 18:17] VITALS: TEMP 98.7
[2024-12-21 20:30] VITALS: BP 119/66; O2SAT 98
[2024-12-21] MEDS ORDERED: CIPR-249 PO (20:44)
[2024-12-21] MEDS ORDERED: ONDA-282 PO (20:52)
[2024-12-21] MEDS ORDERED: KETO-204 PO (20:52)
[2024-12-21] MEDS: ACETAMINOPHEN 500 MG TAB PO ONE (20:54)
[2024-12-21] MEDS: CIPROFLOXACIN 500 MG TABLET PO ONE (20:54)
== END 2024-12-21 21:13 | disposition home or self-care (01) ==
LOC: M ED 15:28
DX: N39.0 Urinary tract infection, site not specified (principal); Z88.0 Allergy status to penicillin; Z79.2 Long term (current) use of antibiotics; Z79.899 Other long term (current) drug therapy
CPT/HCPCS: 74177; 76856; 80047; 80053; 81001; 83605; 83690; 84703; 85025; 85652; 86140; 87086; 93976; 96374; 99284; J1885; J2405; Q9967

== ENCOUNTER → 2025-02-03 | Outpatient (CLI) | payer OTHER ==
[~2025-02-03] MED LIST changes: +CIPR-249 PO; +KETO-204 PO; +ONDA-282 PO
== END ==
LOC: M RAD 16:13
PROVIDERS: ATTEND Physician Assistant
DX: M47.816 Spondylosis without myelopathy or radiculopathy, lumbar region (principal); M48.061 Spinal stenosis, lumbar region without neurogenic claudication; M89.38 Hypertrophy of bone, other site

== ENCOUNTER → 2025-02-09 | Outpatient (REF) ==
[2025-02-09 10:17] LABS: SOFIA COVID ANTIGEN NEGATIVE (NEGATIVE)
== END ==
LOC: M EMP 09:54
PROVIDERS: ATTEND Family Medicine
DX: Z20.822 Contact with and (suspected) exposure to COVID-19 (principal)